=== PATIENT | male | born 1955 | race African-American/Black ===

== ENCOUNTER 2020-03-14 13:52 | Emergency (ER) | payer SELFPAY ==
[~2020-03-14] VITALS: Ht 185.4 cm; Wt 98.0 kg
[2020-03-14 14:10] VITALS: BP 118/74
== END 2020-03-14 17:25 | disposition home or self-care (01) ==
LOC: ER 13:52
DX: R21 Rash and other nonspecific skin eruption (principal)
CPT/HCPCS: 99283